=== PATIENT | female | born 2000 | race Caucasian/White ===

== ENCOUNTER 2022-02-20 11:54 | Emergency (ER) | payer BC, SELFPAY ==
[2022-02-20 12:21] VITALS: BP 109/60; PULSE 85; RESP 17; TEMP 36.7; O2SAT 98
--- NOTE | 2022-02-20 12:40 | ED.GENADULT ---
HPI - General Adult General Chief complaint: Ear Stated complaint: bilateral ear pain Time Seen by Provider: 02/20/22 12:06 Source: patient Mode of arrival: ambulatory Limitations: no limitations History of Present Illness HPI narrative: Patient presents for evaluation of bilateral ear pain, right greater than the left, for the last week. She states she also had some sinus congestion, postnasal drainage and a dry cough. She attributes the cough to postnasal drainage. Those symptoms have improved but ear pain has persisted. 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 She denies any fever, chills, nausea, vomiting, shortness of breath, sore throat, tinnitus. She does have some decreased hearing in right ear but denies any drainage. She is not aware of any specific sick contacts. She had COVID in August 2020. She has received her COVID vaccination. She does not smoke. She has been taking sudafed for her symptoms. No additional complaints or concerns. Related Data Home Medications Medication Instructions Recorded Confirmed levonorgestrel 20 mcg/24 hours (7 1 device intrauterine ONCE 02/20/22 02/20/22 yrs) 52 mg intrauterine device (Mirena) Allergies Allergy/AdvReac Type Severity Reaction Status Date / Time No Known Allergies Allergy Verified 02/20/22 12:28 Review of Systems Review of Systems: CONSTITUTIONAL: Denies fever, chills, or sweats. EYES: Denies visual changes, redness, or discharge. ENT: Reports sinus congestion, postnasal drainage, decreased hearing in right ear, bilateral otalgia-right greater than left CARDIOVASCULAR: Denies chest pain, palpitations, or edema. RESPIRATORY:Reports nonproductive cough. Denies dyspnea. GASTROINTESTINAL: Denies abdominal pain, nausea, vomiting, or diarrhea. GENITOURINARY: Denies dysuria or hematuria. SKIN: Denies rash or itching. MUSCULOSKELETAL: Denies back pain, joint pain, or myalgia. NEUROLOGIC: Denies headache, numbness, dizziness, or weakness. PSYCHIATRIC: Denies anxiety or depression. FOR[facility]LY [facility] Past Medical History Medical History No pertinent past medical history Surgical History Surgical History History of appendectomy Family History Family History (Updated 02/20/22 @ 12:47 by Lobo Romero, [employer]ING [employer] OPERATOR, ) Mother Medical history non-contributory Social History Social History Smoking status: Never smoker Alcohol intake: never Substance use: never Living arrangements: with family Gender identity (if verbalized by the patient): Female Spiritual care concerns: No Exam Narrative: GENERAL: Well-appearing, well-nourished, and in no acute distress. HEAD: Normocephalic, atraumatic. EYES: PERRLA and EOMI. ENT: Nares clear, no rhinorrhea or epistaxis. Mucous membranes moist. Oropharynx without tonsillar hypertrophy exudate or other lesions. Right TM erythema with middle ear fluid and bulging noted NECK: Supple. No adenopathy or masses. No carotid bruits or JVD CHEST: Clear to auscultation. No respiratory distress. No wheezes rales or rhonchi HEART: Regular rate and rhythm. No murmur heard. Normal peripheral pulses. ABDOMEN: Soft, nontender, nondistended, normal active bowel sounds. EXTREMITIES: Normal range of motion. No edema. SKIN: Warm, dry, no rash. NEURO: No focal deficits. Alert and oriented x3. PSYCH: Normal mood and affect. Course Course Emergency Course: This is a 21-year-old female who presented with complaints of right-sided ear pain with decreased hearing. I offered to check COVID test, which she declined. She has evidence of otitis media likely 2/2 eustachian tube dysfunction in setting of recent altitude changes associated with flying. She may continue to take sudafed. Will add flonase and augme
== END 2022-02-20 12:43 | disposition home or self-care (01) ==
PROVIDERS: Emergency Provider Nurse Practitioner
DX: H66.91 Otitis media, unspecified, right ear (principal); H69.81 Other specified disorders of Eustachian tube, right ear; Z87.891 Personal history of nicotine dependence
CPT/HCPCS: 99213; G0463